=== PATIENT | female | born 1955 | race Caucasian/White ===

== ENCOUNTER 2018-03-21 07:49 | Emergency (ER) | payer OTHER ==
[~2018-03-21] VITALS: Ht 167.6 cm; Wt 63.5 kg
[2018-03-21] MEDS ORDERED: NEURONTIN 300300 M1 PO (07:58)
[2018-03-21] MEDS ORDERED: PREDNISONE 10 M10 MG PO (07:58)
[2018-03-21] MEDS ORDERED: NAPROXEN375 MG PO (08:35)
[2018-03-21] MEDS ORDERED: TRAMADOL 50 MG50 MG PO (08:35)
[2018-03-21 09:29] VITALS: BP 147/57
== END 2018-03-21 09:30 | disposition home or self-care (01) ==
LOC: ER 07:49
DX: S63.592A Other specified sprain of left wrist, initial encounter (principal); S63.591A Other specified sprain of right wrist, initial encounter; F17.210 Nicotine dependence, cigarettes, uncomplicated; W01.0XXA Fall on same level from slipping, tripping and stumbling without subsequent striking against object, initial encounter; Y92.89 Other specified places as the place of occurrence of the external cause; Y93.89 Activity, other specified; Y99.8 Other external cause status

== ENCOUNTER → 2018-06-15 | Outpatient (CLI) | payer OTHER ==
[~2018-06-15] VITALS: Ht 167.6 cm; Wt 68.0 kg
[~2018-06-15] MED LIST: CRESTOR10 MG PO; GRALISE1 EACH PO; NABUMETONE 750750 M1 PO; NAPROXEN375 MG PO; NEURONTIN 300300 M1 PO; PREDNISONE 10 M10 MG PO; TRAMADOL 50 MG50 MG PO; ZANAFLEX4 MG PO
[2018-06-15 08:09] VITALS: BP 165/68
[2018-06-15 08:27] LABS: HEMATOCRIT 43.8 % (37.0-47.0); HEMOGLOBIN 14.4 gm/dL (12.0-15.0); MCH 31.7 pg (26.0-34.0); MCV 96.1 fL (80.0-100.0); RBC 4.55 mil/uL (4.20-5.00); RDW 13.2 % (10.5-14.5); WBC 5.5 thou/uL (4.0-11.0)
[2018-06-15 08:29] LABS: CALCIUM 9.9 mg/dL (8.5-10.1); CREATININE 0.7 mg/dL (0.6-1.0); POTASSIUM 4.5 mmol/L (3.5-5.1)
--- NOTE | 2018-06-17 19:01 | CATHLAB ---
[facility] [address] [place] [address] INVASIVE PROCEDURE REPORT Name: LORENZO LOPES Room #: REG Manny#: [id number] ������������� Admission: 06/15/18 ������������� Attend Phys: Emerson Reyes Discharge: ��� ������������� ��� Date of : 55 Date of Service: 06/17/18 1900 �� Report #: [id number] �������� ��������������������������������������������[id number] THIS REPORT FOR: //name// APPROVED REPORT Study performed: 06/15/2018 10:05:19 Patient Details Patient Status: Out-Patient Room #: The patient is a 63 year-old female Event Personnel Emerson Solorio Screen Printing Machine Loader Unloader, Fei Velázquez RN, Chente Cancino Mahmood, Amber Monitor Procedures Performed Art Access - R femoral artery* Left Heart Cath w/or w/o Coronaries [id number] [facility] [id number] Initial Mod Sed Same Phys/QHP Gr5y 595484 Hemostasis with Manual pressure, supervision of conscious sedation Indication Chest pain Procedure Narrative The patient was brought electively to the Cardiac Catheterization Laboratory and was prepped and draped in a sterile manner. The Right Groin^ was infiltrated with 1% Lidocaine subcutaneous anesthesia. A PINNACLE 4FR Sheath #[id number] sheath was inserted into the RFA^. Coronary angiography was performed using coronary diagnostic catheters. The right coronary system was accessed and visualized with a JR 4 catheter. The left coronary system was accessed and visualized with a JL 4 catheter. The left ventricle was accessed and visualized with a Pigtail catheter. Left ventricular/Aortic Valve gradient assessed via catheter pullback. Hemostasis was obtained with manual pressure following sheath removal without any complications. The patient tolerated the procedure well and there were no complications associated with the procedure. There was no hematoma. Intraoperative Conscious Sedation Sedation start time: 10:17 Case end Time: 10:42 Versed 2 mg Fluoro Time: 1.45 minutes [facility] [place] [address] INVASIVE PROCEDURE REPORT Name: LORENZO LOPES Room #: REG BRIGETTE Bryant#: [id number] ������������� Admission: 06/15/18 ������������� Attend Phys: Emerson Reyes Discharge: ��� ������������� ��� Date of : 55 Date of Service: 06/17/18 1900 �� Report #: [id number] �������� ��������������������������������������������[id number] Dose: DAP 1147.00 cGycm2 168 mGy Contrast Type and Amount: Omnipaque 60 ml Coronary Angiography The patient's coronary anatomy is right dominant. Diagnostic Cath Left Main Normal origin model moderate caliber free of high-grade disease bifurcates left anterior descending left circumflex LAD Moderate caliber vessel coursing the anterior interventricular sulcus giving rise to septal and diagonal branches which are small in size all of which are free of high-grade disease. Diagonal 1 Small-caliber no high-grade lesions noted Circumflex Moderate caliber circumflex marginal vessel which is free of high-grade disease as it courses along the lateral aspect of the ventricle towards the apex. No obstructive lesions of significance are noted Right Coronary Moderate caliber vessel of normal origin courses in the AV groove. Prior to the acute margin there is a region of tapering that appears to be between 50 and 60%. And nonflow limiting. R PDA Small to moderate caliber vessel coursing towards the apex and the posterior interventricular sulcus. High-grade disease Left Ventriculography Left Ventriculography was not performed. Hemodynamics The aortic pressure is 167/81 mmHg with a mean of 70 mmHg. The left ventricular pressure is 179/12 mmHg with a mean of mmHg. The left ventricular end diastolic pressure is 24 mmHg. Conclusion 1. Coronary artery disease, two-vessel, moderate 2.. Normal hemodynamics Recommendations Cardiac Risk Reduction Program Medical Therapy ��������������������������������������������� <ELECTRONICALLY SIGNED> ���������������������������������������� By: Emerson Solorio MD ��������������������������������������������� 06/17/181899 99 99 Emerson Solorio MD /INF
== END ==
LOC: CATH 07:45
PROVIDERS: Internal Medicine
DX: I25.10 Atherosclerotic heart disease of native coronary artery without angina pectoris (principal); E78.5 Hyperlipidemia, unspecified; Z98.890 Other specified postprocedural states; Z82.49 Family history of ischemic heart disease and other diseases of the circulatory system; F17.210 Nicotine dependence, cigarettes, uncomplicated

== ENCOUNTER → 2020-02-04 | Outpatient (CLI) | payer OTHER | LOC: SJCVCIMAG 08:35 | PROVIDERS: ATTEND Internal Medicine | DX: I07.1 Rheumatic tricuspid insufficiency (principal); I25.10 Atherosclerotic heart disease of native coronary artery without angina pectoris; F17.200 Nicotine dependence, unspecified, uncomplicated; Z79.899 Other long term (current) drug therapy ==

== ENCOUNTER → 2020-04-20 | Outpatient (CLI) | payer OTHER | LOC: NUC 08:32 → BC 11:54 → NUC 11:58 | PROVIDERS: ATTEND Internal Medicine | DX: Z12.31 Encounter for screening mammogram for malignant neoplasm of breast (principal); M81.0 Age-related osteoporosis without current pathological fracture; Z78.0 Asymptomatic menopausal state ==

== ENCOUNTER → 2020-06-12 | Outpatient (CLI) | payer OTHER | LOC: CAT 08:55 | PROVIDERS: ATTEND Internal Medicine | DX: R91.1 Solitary pulmonary nodule (principal); I25.10 Atherosclerotic heart disease of native coronary artery without angina pectoris; F17.210 Nicotine dependence, cigarettes, uncomplicated ==

== ENCOUNTER 2021-01-11 07:28 | Inpatient (IN) | payer OTHER ==
[~2021-01-11] VITALS: Ht 167.6 cm; Wt 61.2 kg
[2021-01-11 07:28] VITALS: BP 129/69
[2021-01-11] MEDS ORDERED: ROSUVASTATIN CA20 MG PO (07:38)
[2021-01-11 08:05] LABS: ABSOLUTE NEUTROPHILS 5.3 thou/uL (1.4-8.2); BASOPHILS 0.3 % (0.0-2.0); EOSINOPHILS 0.3 % (0.0-3.0); HEMATOCRIT 39.1 % (37.0-47.0); HEMOGLOBIN 13.3 gm/dL (12.0-15.0); LYMPHOCYTES 13.4 % (24.0-44.0); MCH 32.8 pg (26.0-34.0); MCHC 33.9 g/dL (28.0-37.0); MCV 96.7 fL (80.0-100.0); MONOCYTES 5.7 % (1.0-8.0); PLATELET COUNT 129 thou/uL (150-400); POLYS 80.3 % (36.0-66.0); RBC 4.05 mil/uL (4.20-5.00); RDW 13.3 % (10.5-14.5); WBC 6.6 thou/uL (4.0-11.0)
[2021-01-11 08:13] LABS: CALCIUM 8.8 mg/dL (8.5-10.1); CREATININE 0.6 mg/dL (0.6-1.0); POTASSIUM 3.8 mmol/L (3.5-5.1)
[2021-01-11] MEDS ORDERED: APAP W/CODEINE1 TA2 PO (09:14)
[2021-01-11] MEDS ORDERED: NAPROSYN500 MG PO (09:14)
--- NOTE | 2021-01-11 11:48 | EKG ---
[address] [address] ELECTROCARDIOGRAM REPORT Name: LORENZO LOPES Room #: 170-3 ADM IN M.R.#: [id number] Admission: 01/11/21 Attend Phys: Desean Le MD Discharge: Date of : 55 Report #: [id number] [facility] ED Test Date: 2021-01-11 Test Time: 07:36:37 Pat Name: LORENZO LOPES Department: Room: 170 Gender: F Slabber: BRIANNE : 1955 Requested By: Manuelito Falcon Order Number: [id number] MD: Michael Posada Measurements Intervals [place] Rate: 93 P: 71 IA: 205 QRS: 62 QRSD: 95 T: 70 QT: 359 QTc: 447 Interpretive Statements Sinus rhythm No previous ECG available for comparison Electronically Signed On 01-11-2021 11:48:24 CDT by Michael Posada [email or web address] <ELECTRONICALLY SIGNED> By: Michael Posada MD, [facility] 01/11/21 1148 0736 0736 Michael Posada MD, FACC /EPI
[2021-01-11 13:07] VITALS: BP 139/58
[2021-01-11 13:19] VITALS: BP 129/55
[2021-01-11 13:58] VITALS: BP 132/73
--- NOTE | 2021-01-11 14:43 | NUR ---
ASSUMED CARE OF PT AT 1340 THIS AFTERNOON. PT WAS ADMITTED TO ER DUE TO FALL DOWN A FLIGHT OF STAIRS. PT HAS FX IN LT FOOT AND BRUISING AND SORENESS IN CHEST, BACK AND SHOULDERS. CHARGE NURSE WILL PERFORM SYSTEMS ASSESSMENT AND CREATE CARE PLAN. PT IS A/OX4 AND HAS NO OTHER COMPLAINTS. MEDS AND TX GIVEN NEEDED AND SCHEDULED.
[2021-01-12 02:14] VITALS: BP 148/75
[2021-01-12 02:18] VITALS: BP 115/63
[2021-01-12 04:27] VITALS: BP 150/80
--- NOTE | 2021-01-12 04:30 | NUR ---
RECEIVED CARE OF THIS PATIENT AT 1900. PATIENT ALERT AND ORIENTED X4. C/O PAIN, MED GIVEN. REMAINS ON BEDREST D/T FX OF L FOOT. SLEPT OFF AND ON DURING NIGHT.
[2021-01-12 07:45] VITALS: BP 145/65
--- NOTE | 2021-01-12 09:44 | NUR ---
ASSESSMENT: CM REVIEWED CHART AND MET WITH PATIENT. PT WAS ADMITTED ADTER FALLING DOWN STEPS WHILE CARRYING GROCERIES PER REPORT. PT REPORTS THAT SHE LIVES AT HOME WITH HER . PT REPORTS THAT SHE HAS ABOUT 6-7 STEPS OUTSIDE TO A LANDING THEN ANOTHER 3 STEPS TO ENTER THE HOME. PT REPORTS HAVING ABOUT 12 STEPS UPSTAIRS WITH HANDRAILS. PT REPORTS THAT SHE HAS NOT HAD HH IN THE PAST OR BEEN TO A SNF. PT REPORTS SHE IS NORMALLY FULLY INDEPENDENT WITH ADLS AND AMBULATION. PT REPORTS SHE DOES HAVE A WALKER AT HOME IF NEEDED. PT IS NOT NORMALLY ON OXYGEN AT HOME. ORTHO WAS CONSULTED TO SEE PATIENT AND PT IS TO WEAR A CAM BOOT AND BE WBAT. CM WILL AWAIT FURTHER RECOMMENDATIONS FROM THERAPY. CM WILL CONTINUE TO FOLLOW.
--- NOTE | 2021-01-12 10:31 | NUR ---
RE-ASSUMED CARE OF PT AT 0700 THIS MORNING. PT HAD NO CHANGES THROUGHOUT THE NIGHT AND CONTINUED WITH PT CARE THIS MORNING. ASSESSMENTS NOTED IN CHART AND OTHERWISE UNREMARKABLE. FALL PRECAUTTIONS ARE IN PLACE, CALL LIGHT AND OTHER NEEDS ARE IN REACH. MEDS AND TX GIVEN NEEDED AND SCHEUDLED.WILL CONTINUE TO MONITOR AND NOTE ANY CHANGES.
[2021-01-12 14:52] VITALS: BP 140/81
[2021-01-12 20:00] VITALS: BP 158/80
--- NOTE | 2021-01-13 02:31 | NUR ---
ASSUMMED CARE CARE OF PT AT SHIFT CHANGE. PT IS AOX4 AND LETS NEEDS BE KNOWN. FALL PRECAUTION IN PLACE. PT REPORTED SOME NECK PAIN; PRN PAIN MEDS GIVEN. 4L O2 VIA NC CONTINUED. PT DENIED NAUSEA. LLE CAM BOOT IN PLACE. ASSESSMENT CHARTED. PT WAS ABLE TO GET COMFORTABLE AND SLEEP PART OF THE SHIFT. VSS AND NO S/S OF ACUTE DISTRESS. WILL CONTINUE TO MONITOR.
[2021-01-13 03:25] VITALS: BP 136/79
[2021-01-13 07:05] VITALS: BP 147/74
[2021-01-13 12:16] VITALS: BP 126/82
--- NOTE | 2021-01-13 15:30 | NUR ---
ON-GOING ASSESSMENT: CM REVIEWED CHART AND SPOKE WITH ATTENDING. PT IS PROGRESSING TOWARDS DISCHARGE GOALS. PT HAVING MRI TODAY AND POSSIBLE DISCHARGE. PT HAS NEEDED EQUIPMENT AT HOME.
--- NOTE | 2021-01-13 15:53 | NUR ---
ASSUMED CARE AT SHIFT CHANGE. PT GIVEN PRN MEDS FOR PAIN TODAY NEEDED. UP TO COMMODE WITH WALKER AND SBA. MRI COMPLETE TODAY AND PLAN FOR ABG AND NOC O2 MONITOR TONIGHT IN ANTICIPATION FOR DC POSSIBLE TOMORROW. ASSESSMENT PER CHART PT PROGRESSING TOWARDS POC GOALS. WILL CONT TO MONITOR AND FOLLOW POC.
[2021-01-13 15:54] VITALS: BP 156/92
[2021-01-13 16:02] LABS: BE(vivo) 5.9 mmol/L (-2 to +3); HCO3 30.2 mmol/L (22.0-26.0); PCO2 42.3 mmHg (35.0-45.0); PO2 67.4 mmHg (80.0-100.0); pH 7.471 (7.360-7.450); sO2 94.4 % (92.0-98.0)
[2021-01-13 19:17] VITALS: BP 118/46
--- NOTE | 2021-01-14 03:07 | NUR ---
ASSUMED PT CARE AT 1900.PT'S AT HER BEDSIDE AT SHIFT CHANGE.IMMOBILIZER TO HER L LEG .PT HAS CONGESTIVE PRODUCTIVE COUGH.RT SET UP O2 MONTOR IN PT'S ROOM FOR A STUDY.PT UP WITH ONE ASSIT TO THE BSC.PT'S CALL IN [facility].
[2021-01-14 04:28] VITALS: BP 148/70
[2021-01-14 06:36] LABS: HEMATOCRIT 37.6 % (37.0-47.0); HEMOGLOBIN 12.4 gm/dL (12.0-15.0); MCH 32.3 pg (26.0-34.0); MCHC 32.9 g/dL (28.0-37.0); MCV 98.2 fL (80.0-100.0); RBC 3.84 mil/uL (4.20-5.00); RDW 12.9 % (10.5-14.5); WBC 5.8 thou/uL (4.0-11.0)
[2021-01-14 07:11] VITALS: BP 145/93
[2021-01-14 09:10] LABS: CALCIUM 8.8 mg/dL (8.5-10.1); CREATININE 0.6 mg/dL (0.6-1.0); POTASSIUM 3.6 mmol/L (3.5-5.1)
[2021-01-14 12:16] VITALS: BP 127/45
--- NOTE | 2021-01-14 13:57 | NUR ---
SW reviewed chart and spoke with nursing and attending physician. Pt had spine MRI and has thoracic compression fx. Neurosurgery consulted. PT/OT on hold at this time until recommendations have been provided by neurosurgery. SW is following to assist as needed with discharge planning.
--- NOTE | 2021-01-14 16:52 | NUR ---
PT SEEN BY PATRIC RHOADES FOR DR. PAULINO. PT TO HAVE CT MYELOGRAM FOR DECISION ON PLAN. POSTERIOR NECK PAINFUL BUT HELPED W/ MEDS. AMBULATING ON LT ANKLE FRACTURE W/ CAM WALKER AND DOING WELL. ENC TO DEEP BREATHE AND COUGH W/ LUNG CONJESTION. STARTED ON MUCINEX.
[2021-01-14 17:52] VITALS: BP 98/77
[2021-01-14 20:04] VITALS: BP 135/66; BP 135/67
[2021-01-15 07:33] VITALS: BP 153/91
--- NOTE | 2021-01-15 10:41 | NUR ---
A/O X 4. ON 1 L O2 VIA NASAL CANNULA. STAND BY ASSIST. NO IV SITE. SR ON TELE. WEARS CAM BOOT WHEN OUT OF BED. PATIENT CRYING THIS MORNING AND WAITING TO KNOW THE PLAN, NURSE READ THE LAST NOTES TO THE PATIENT. HAVING BACK AND ARM PAIN, NORCO GIVEN FOR PAIN.
[2021-01-15 11:27] VITALS: BP 124/71
[2021-01-15 15:40] LABS: APTT 26.9 Seconds (24.5-32.8); INR 0.94; PROTIME 10.3 Seconds (10.5-12.1)
[2021-01-15 16:49] VITALS: BP 142/72
[2021-01-15 19:23] VITALS: BP 126/53
[2021-01-16 00:06] VITALS: BP 142/73
--- NOTE | 2021-01-16 04:26 | NUR ---
ASSUMED CARE OF PT 0. BEDSIDE REPORT RECIEVED. MALOU ASSESSMENT COMPLETE. MEDS ADMINISTERED ORDERED, LOVENOX HELD PER SHIFT REPORT AND PER MD. PT REPORTS TOLERABLE LEVEL AT MLAOU, PAIN MED ADMINISTERED LATER IN SHIFT. LLE IN CAM BOOT. 1 L O2 VIA NC ON. REFILLED ICE WATER. REFUSED STOOL SOFTNERS D/T SOFT ALMOST LOOSE STOOLS PER PT. TELE LEADS REPLACED. PT DENIES ANY OTHER NEEDS AT THIS TIME. CALL LIGHT IN REACH.
[2021-01-16 06:16] VITALS: BP 134/63
[2021-01-16 08:13] VITALS: BP 138/52
--- NOTE | 2021-01-16 12:04 | NUR ---
ASSUMED CARE OF PT AT 0700 THIS MORNING. PT IS A/O X4 AND HAS NO COMPLAINTS. PT HAS C-3&4 COMPRESSED FX'S AND SCHEDULED TO HAVE KYPHOPLASTY THURSDAY 01/18. ASSESSMENTS NOTED IN CHART AND OTHERWISE UNREMARKABLE. FALL PRECAUTIONS ARE IN PLACE. CALL LIGHT AND OTHER NEEDS ARE WITHIN REACH. MEDS AND TX GIVEN NEEDED AND SCHEDULED. WILL MONITOR AND NOTE ANY CHANGES.
[2021-01-16 12:19] VITALS: BP 150/80
[2021-01-16 16:10] VITALS: BP 126/71
[2021-01-16 19:37] VITALS: BP 127/72
[2021-01-17 04:27] VITALS: BP 146/72
--- NOTE | 2021-01-17 04:53 | NUR ---
ASSUMED CARE OF PT AT 1900. BEDSIDE REPORT RECEIEVED, HUSA=BAND AT BEDSIDE. PT A&O X4, CAMB BOOT TO LLE AT ALL TIME. MEDS TAKEN ORDERED, REFUSED STOOL SOFTNERS. ADVISED THAT PT SHOUDL RESUME TAKING THEM TOMOROW THAT IS THAT DAY BEFORE HER SURGERY, PT AGREED. REFILLED WAYER, NO OTHER NEEDS AT THIS TIME, CALL LIGHT IN REACH
[2021-01-17 12:12] VITALS: BP 133/80
--- NOTE | 2021-01-17 13:31 | NUR ---
A/O X 4. ROOM AIR. AD MIKEL. SR ON TELE. USES BEDSIDE COMMODE. ON 1 L O2 VIA NASAL CANNULA. AT BEDSIDE. 9/10 BACK PAIN, NORCO GIVEN PRN q 4HRS. NPO TONIGHT AT MIDNIGHT FOR KYPHOPLASTY TOMORROW.
[2021-01-17 15:40] VITALS: BP 126/67
[2021-01-17 19:52] VITALS: BP 136/77
[2021-01-17 20:54] VITALS: BP 136/77
--- NOTE | 2021-01-18 03:28 | NUR ---
CONT CARE FORM OUT GOING RN AT 0300 PT RESTING WELL IN BED. NPO FOR KYPHOPLASTY IN THE MORNING NO FURTHER SIGNS OF DISCOMFORT WILL CONT TO MONITOR.
[2021-01-18 04:44] VITALS: BP 129/73
[2021-01-18 09:55] LABS: HEMATOCRIT 36.3 % (37.0-47.0); HEMOGLOBIN 12.2 gm/dL (12.0-15.0); MCH 32.1 pg (26.0-34.0); MCHC 33.6 g/dL (28.0-37.0); MCV 95.7 fL (80.0-100.0); RBC 3.79 mil/uL (4.20-5.00); RDW 12.5 % (10.5-14.5)
[2021-01-18 10:10] LABS: CALCIUM 9.1 mg/dL (8.5-10.1); CREATININE 0.5 mg/dL (0.6-1.0)
[2021-01-18 10:16] VITALS: BP 118/61
--- NOTE | 2021-01-18 11:10 | NUR ---
Assess for length of stay. Admit following fall down stairs. Kyphoplasty surgery pending. Eating 100% meals, wt status adequate. Presents low nutrition risk
--- NOTE | 2021-01-18 11:13 | NUR ---
on-going assessment: CM HAS REVIEWED CHART AND SPOKE WITH ATTENDING. NEUROSURGERY HAD BEEN CONSULTED AND RECOMMENDING POSTERIOR C3/4-C7 LAMINECTOMY WITH LATERAL MASS SCREW FIXATION AND FUSION. PLANS FOR SURGERY TODAY. CM WILL CONTINUE TO FOLLOW UP WITH PATIENT POST SURGERY TO ADDRESS ANY DISCHARGE NEEDS. CM WILL CONTINUE TO FOLLOW TO ASSIST NEEDED.
[2021-01-18 17:00] VITALS: BP 146/79
[2021-01-18 18:00] VITALS: BP 136/80
--- NOTE | 2021-01-18 18:30 | NUR ---
PT NPO FOR OR THIS AM. RETURNED AT 1645. RECIEVED CALL FROM JF SPIVEY TO OBTAIN AN ASPEN CERVICAL COLLAR FOR PT VICKIE POST OP COLLAR PUTTING PRESURE ON CHIN. HONEY CALLED AND ORDER PLACED RIGHT AWAY AND WAS HERE SOON AFTER. FIELD ENUMERATOR PLACED NEW COLLAR ON AND DID TEACHING W/ AND PT. PT STATED MORE COMFORTABLE. GOOD CIRC/SENSATION TO FINGERS. DSNG DRY. BLOODY DRAINAGE IN VIKTOR DRAIN.
[2021-01-18 19:23] VITALS: BP 142/77
[2021-01-19 04:16] VITALS: BP 146/58
--- NOTE | 2021-01-19 05:22 | NUR ---
RECEIVED CARE OF THIS PATIENT AT 1900. PATIENT ALERT AND ORIENTED X4. ON BEDREST AFTER NECK SURGERY. NEEDS REPOSITIONING FREQUENTLY. HAS CAM BOOT ON AND A NECK BRACE. C/O PAIN, MED GIVEN. SLEPT LITTLE THIS SHIFT.
[2021-01-19 08:04] VITALS: BP 156/70
[2021-01-19 12:14] VITALS: BP 149/64
--- NOTE | 2021-01-19 12:41 | NUR ---
ASSUMED PT CARE THIS AM. PT IS ALERT & ORIENTED X4. PT HAS IV SITE ON LFA. PT IS ON TELE MONITOR ON. PT HAS CAM BOOT ON L LEG, C COLLAR AND VIKTOR DRAIN R NECK. PT HAS MASTERSON CATH IN PLACE. PT IS 2L O2 NC. GIVEN PAIN MEDICATION THIS AM PRIOR WORKING WITH OCCUPATIONAL THERAPY. PT WAS AT THER BEDSIDE. WILL CONTINUE TO MONITOR PT. FOLLOW POC.
[2021-01-19 17:24] VITALS: BP 145/78
[2021-01-19 22:07] VITALS: BP 158/86
--- NOTE | 2021-01-20 03:44 | NUR ---
IMMOBILIZER TO LLE, C-COLLAR IN PLACE. PT CONTINUES TO BE ON /NC, ENC TO USE I/S W/A. PT GIVEN OXY FOR PAIN WITH EFFECTIVENESS, MASTERSON TO D/D, ADEQUATE U/O. DENIES ANY N/V OR HEADACHE.VIKTOR IN PLACE TO RIGHT NECK.CALL LIGHT WITHIN REACH.
--- NOTE | 2021-01-20 04:00 | NUR ---
SOMNOLENT, WILL SOMETIMES AROUND. OBERVED MOVING HANDS A LITTLE.MASTERSON WITH POOR OUTPUT.APNEICORAL CARE PROVIDED. CONTINUES WITH COMFORT CARE.
[2021-01-20 08:30] VITALS: BP 154/82
--- NOTE | 2021-01-20 11:34 | NUR ---
on-going assessment: CM REVIEWED CHART AND SPOKE WITH PATIENT AT THE BEDSIDE. PT IS ALERT AND ORIENTED X4. CM DISCUSSED 5N ACUTE REHAB WITH PATIENT AND PT REPORTS SHE PREFERS TO GO HOME FROM HOSPITAL AND NOT GO TO REHAB. PT HAS GOOD SUPPORT FROM HER . PT ALREADY HAS A WALKER AT HOME. PT IS CURRENTLY ON 1L OXYGEN AND DOES NOT HAVE OXYGEN AT HOME. CM SPOKE WITH DR. WONG AND HE REPORTS PT WILL LIKELY DISCHARGE HOME TOMORROW WITH . PT REPORTS HAVING NO PREFERENCE OF COMPANY. CM SENT REFERRAL TO [facility]. PLANS FOR LIKELY DISCHARGE HOME TOMORROW.
[2021-01-20 12:05] VITALS: BP 143/85
--- NOTE | 2021-01-20 13:58 | NUR ---
ASSUMED PT CARE THIS AM. PT IS ALERT & ORIENTED X4. PT HAS IV SITE ON LFA SALINE LOCKED. PT IS ON TELE MONITOR ON. PHYSICIAN DESKTOP SUPPORT ASSOCIATE REMOVED VIKTOR DRAIN THIS AM. LAST BM WAS TODAY. PT HAS MASTERSON CATH IN PLACE. PT HAS C COLLAR AND CAM BOOTS ON L LEG. GIVEN PAIN MEDICATION PER PT REQUEST. PT TOLERATED DIET AND MEDICATION WELL. WILL CONTINUE TO MONITOR PT. FOLLOW POC.
[2021-01-20 14:12] VITALS: BP 143/85
--- NOTE | 2021-01-20 14:41 | NUR ---
ON-GOING ASSESSMENT: CM REVIEWED CHART. PT HAS ORDERS TO DISCHARGE HOME TODAY WITH NO NEEDS. PT HAS EQUIPMENT AND OUTPT ALREADY ARRANGED.
[2021-01-20 16:30] VITALS: BP 149/87
[2021-01-20 19:17] VITALS: BP 149/78
--- NOTE | 2021-01-21 02:20 | NUR ---
PT IS A/O X4 AND IS UP WITH ASSISTANCE. ROOM AIR. VSS AFEBRILE. C-COLLAR AND CAM BOOT TO LEFT FOOT IN PLACE. PT C/O PAIN. PRN PAIN MEDICATION GIVEN DIRECTED. FALL PRECAUTIONS IN PLACE, CALL LIGHT IS WITHIN REACH.
[2021-01-21 04:32] VITALS: BP 154/79
[2021-01-21 07:26] VITALS: BP 148/89
[2021-01-21 11:39] VITALS: BP 126/74
[2021-01-21 12:06] LABS: BASOPHILS 0.3 % (0.0-2.0); EOSINOPHILS 0.8 % (0.0-3.0); HEMATOCRIT 41.9 % (37.0-47.0); HEMOGLOBIN 14.3 gm/dL (12.0-15.0); LYMPHOCYTES 16.4 % (24.0-44.0); MCH 32.7 pg (26.0-34.0); MCHC 34.1 g/dL (28.0-37.0); MONOCYTES 10.4 % (1.0-8.0); PLATELET COUNT 305 thou/uL (150-400); POLYS 72.1 % (36.0-66.0); RBC 4.37 mil/uL (4.20-5.00); RDW 12.7 % (10.5-14.5); WBC 6.9 thou/uL (4.0-11.0)
[2021-01-21 12:39] LABS: ALBUMIN 2.9 g/dL (3.4-5.0); CREATININE 0.7 mg/dL (0.6-1.0); MAGNESIUM 1.8 mg/dL (1.8-2.4); POTASSIUM 3.4 mmol/L (3.5-5.1); TOTAL BILIRUBIN 0.5 mg/dL (0.2-1.0); TOTAL PROTEIN 7.8 g/dL (6.4-8.2)
[2021-01-21 14:39] VITALS: BP 126/74
--- NOTE | 2021-01-21 15:35 | EKG ---
[place] [address] [facility] [place] [address] ELECTROCARDIOGRAM REPORT Name: LORENZO LOPES Room #: 440- ADM IN M.R.#: [id number] Admission: 01/11/21 Attend Phys: Desean Le MD Discharge: Date of : 55 Report #: [id number] [facility] Test Date: 2021-01-21 Test Time: 11:20:50 Pat Name: LORENZO LOPES Department: Room: 440 P Gender: F Mail Order Clerk: ADDISON : 1955 Requested By: Shannon Davis Order Number: [id number] MD: Michael Posada Measurements Intervals [place] Rate: 109 P: 72 VT: 153 QRS: 21 QRSD: 84 T: 59 QT: 330 QTc: 445 Interpretive Statements Sinus tachycardia Atrial premature complex LAE, consider biatrial enlargement Compared to ECG 01/11/2021 07:36:37 Atrial premature complex(es) now present Sinus rhythm no longer present Electronically Signed On 01-21-2021 15:35:29 CDT by Michael Posada [email or web address] <ELECTRONICALLY SIGNED> By: Michael Posada MD, FAC 01/21/21 1535 1120 1120 Michael Posada MD, [facility] /EPI
[2021-01-21] MEDS ORDERED: MIRALAX17 GM PO (16:01)
[2021-01-21] MEDS ORDERED: PERCOCET PO (16:01)
--- NOTE | 2021-01-21 16:24 | NUR ---
ON-GOING ASSESSMENT: PT HAS ORDERS TO DISCHARGE HOME TODAY WITH HH. CM FAXED D/C ORDERS TO S HH AND NOTIFIED THEM OF DISCHARGE. CM CONFIRMED THEY RECEIVED ORDERS.
== END 2021-01-21 17:03 | disposition home health service (06) | DRG 471 ==
LOC: ER 07:28 → 4S 10:36 → EROBS 10:36 → 4S 13:56
PROVIDERS: Emergency Medicine; Internal Medicine; Physician Assistant; Specialist; ADMIT Surgery; ATTEND Surgery
PROC: B01B1ZZ Fluoroscopy of Spinal Cord using Low Osmolar Contrast (ICD-10-PCS; 2021-01-15)
PROC: 0RG2071 Fusion of 2 or more Cervical Vertebral Joints with Autologous Tissue Substitute, Posterior Approach, Posterior Column, Open Approach (ICD-10-PCS; principal; 2021-01-18)
PROC: 00NW0ZZ Release Cervical Spinal Cord, Open Approach (ICD-10-PCS; principal; 2021-01-18)
DX: M48.02 Spinal stenosis, cervical region (principal); J96.01 Acute respiratory failure with hypoxia; M48.54XA Collapsed vertebra, not elsewhere classified, thoracic region, initial encounter for fracture; G99.2 Myelopathy in diseases classified elsewhere; J44.9 Chronic obstructive pulmonary disease, unspecified; E78.5 Hyperlipidemia, unspecified; S00.93XA Contusion of unspecified part of head, initial encounter; S13.9XXA Sprain of joints and ligaments of unspecified parts of neck, initial encounter; F17.210 Nicotine dependence, cigarettes, uncomplicated; S92.902A Unspecified fracture of left foot, initial encounter for closed fracture; G62.9 Polyneuropathy, unspecified; R53.81 Other malaise; M50.20 Other cervical disc displacement, unspecified cervical region; M53.2X2 Spinal instabilities, cervical region; S92.352A Displaced fracture of fifth metatarsal bone, left foot, initial encounter for closed fracture; S92.242A Displaced fracture of medial cuneiform of left foot, initial encounter for closed fracture; G89.29 Other chronic pain; M54.9 Dorsalgia, unspecified; D18.09 Hemangioma of other sites; Z71.6 Tobacco abuse counseling; W18.39XA Other fall on same level, initial encounter; Y93.89 Activity, other specified; Y92.89 Other specified places as the place of occurrence of the external cause; Y99.8 Other external cause status; Z20.822 Contact with and (suspected) exposure to COVID-19
CPT/HCPCS: 10100; 50010; 50101; 50402; 50503; 50838; 56525; 56529; 56532; 57103; 58456; 58567; 58759; 58798; 59017; 62110; 62900; 70005

== ENCOUNTER → 2021-02-04 | Outpatient (CLI) | payer OTHER ==
[~2021-02-04] MED LIST changes: +APAP W/CODEINE1 TA2 PO; +MIRALAX17 GM PO; +NAPROSYN500 MG PO; +PERCOCET PO; +ROSUVASTATIN CA20 MG PO
== END ==
LOC: SJCVC 09:43
PROVIDERS: ATTEND Internal Medicine
DX: R94.31 Abnormal electrocardiogram [ECG] [EKG] (principal); I51.7 Cardiomegaly; R55 Syncope and collapse; E78.5 Hyperlipidemia, unspecified; I25.10 Atherosclerotic heart disease of native coronary artery without angina pectoris; J45.901 Unspecified asthma with (acute) exacerbation; M47.22 Other spondylosis with radiculopathy, cervical region; K21.9 Gastro-esophageal reflux disease without esophagitis; I65.23 Occlusion and stenosis of bilateral carotid arteries; F17.210 Nicotine dependence, cigarettes, uncomplicated; Z72.89 Other problems related to lifestyle; Z79.82 Long term (current) use of aspirin; Z79.899 Other long term (current) drug therapy

== ENCOUNTER → 2021-03-10 | Outpatient (CLI) | payer OTHER | LOC: RAD 08:29 | PROVIDERS: ATTEND Nurse Practitioner Family | DX: M47.812 Spondylosis without myelopathy or radiculopathy, cervical region (principal); M48.02 Spinal stenosis, cervical region; I65.23 Occlusion and stenosis of bilateral carotid arteries; Z98.1 Arthrodesis status ==

== ENCOUNTER → 2021-05-17 | Outpatient (CLI) | payer OTHER | LOC: BC 08:49 | PROVIDERS: ATTEND Internal Medicine | DX: Z12.31 Encounter for screening mammogram for malignant neoplasm of breast (principal) ==